=== PATIENT | male | born 1940 | race Caucasian/White ===

== ENCOUNTER 2017-05-21 10:00 | Inpatient (IN) | payer MEDICARE, OTHER ==
[~2017-05-21] VITALS: Ht 175.3 cm; Wt 78.1 kg
--- NOTE | ~2017-05-21 | CON ---
PATIENT'S NAME: REGINALDO RUSH [facility] AGE: 76 Y [address] ROOM: [place] [address] LOCATION: [facility] ADMIT DATE: 05/21/2017 Consultation DISCHARGE DATE: FAMILY PHYSICIAN: PHYSICIAN, UNKNOWN ATTENDING PHYSICIAN: Rajinder Godoy REFERRING PHYSICIAN: STEPHAN SANTIZO MD REASON FOR CONSULTATION: Abdominal pain. HISTORY OF PRESENT ILLNESS: The patient is a 76-year-old male who, 3 or 4 days ago, said that he was raking apples. A few hours after this, he had some right-sided pain. Describes it as quite sharp, worse with deep breath. This has gotten worse over a 24-hour period. This was felt to be mainly in the right flank on his initial examination. He noticed pain when he would bend or turn. He was evaluated and was found to have elevated creatinine. He carries a history of kidney stones. He has had an ultrasound of his kidneys that revealed a cyst. Otherwise, no stones. He had a CT scan of his abdomen due to his abdominal pain, but also pain with breathing, and was found to have a small pulmonary embolus. No significant intraabdominal abnormalities, but because of ongoing abdominal pain and leukocytosis, I was asked to see the patient. Currently, he says his pain has stabilized. This has not gotten significantly worse, but is not significantly better either. He is being maintained on heparin. The patient states he has never had pain like this in the past. He describes the pain as right sided as well as right upper quadrant, hurts most with breathing. His white blood cell count was 21,000. Lactate of 1.4. He has no known history of coronary artery disease. HOME MEDICATIONS: Include: 1. Acetaminophen. 2. Cholecalciferol. 3. Multivitamin. 4. Aspirin. 5. Hydrochlorothiazide. 6. Citalopram. 7. Zolpidem. 8. Mevacor. 9. Lisinopril. 10. Verapamil. CURRENT ILLNESSES: Hypertension, hyperlipidemia, and degenerative joint disease. PAST SURGICAL HISTORY: PATIENT'S NAME: REGINALDO RUSH [facility] AGE: 76 Y [address] ROOM: [place] [address] LOCATION: [facility]ICU ADMIT DATE: 05/21/2017 Consultation DISCHARGE DATE: FAMILY PHYSICIAN: PHYSICIAN, UNKNOWN ATTENDING PHYSICIAN: Rajinder Godoy Appendectomy and left ureteral stone removal. SOCIAL HISTORY: He does not use tobacco. Occasionally uses alcohol. 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 ALLERGIES: NONE. FAMILY HISTORY: Noncontributory. REVIEW OF SYSTEMS: Denies fevers, chills, or night sweats. No chest pain. He currently is short of breath with the pain. No melena or hematochezia. No hematuria or dysuria. No history of hyper or hypothyroidism. No diabetes. Further review of systems is all negative. PHYSICAL EXAMINATION: GENERAL: A pleasant 76-year-old male who appears mildly uncomfortable. HEENT: Head is normocephalic and atraumatic. Eyes are anicteric. NECK: Without lymphadenopathy. HEART: Sinus rhythm. LUNGS: Relatively clear bilaterally. ABDOMEN: Does reveal tenderness, mainly in the right upper quadrant. No rebound or guarding is present. The rest of the abdominal exam is benign, although with pressure throughout the abdomen, there is mild radiation into the right upper quadrant and right flank. No palpable masses are present. He has a right paramedian incision from previous appendectomy. EXTREMITIES: Warm. No edema. ASSESSMENT: Abdominal pain. PLAN: At this point in time, I would like to get an ultrasound of Reginaldo's gallbladder as his pain mainly seems in the right upper quadrant, although he has normal liver function tests and had a normal CT scan. His pain seems to be out of proportion compared to his imaging findings which initially may be concerning for ischemia; however, his lactate is 1.4, and his white blood cell count has come down from 27,000 to 21,000. He really does not have a large number of risk factors to develop acalculous cholecystitis. If his ultrasound is negative and his pain persists, we may either need to do repeat CT versus HIDA scan. PATIENT'S NAME: REGINALDO RUSH [facility] AGE: 76 Y [address] ROOM: [place] [address] LOCATION: [facility] ADMIT DATE: 05/21/2017 Consultation DISCHARGE DATE: FAMILY PHYSICIAN: PHYSICIAN, UNKNOWN ATTENDING PHYSICIAN: Rajinder Godoy UCHE J MD RANJIT RIOS/aaron /[id number] d: 05/23/17 1324 t: 06/03/17 1331, CONSULTATION REPORT
--- NOTE | ~2017-05-21 | PN ---
PATIENT'S NAME: GERALDO RUSH [facility] AGE: 76 Y [address] ROOM: [address] [place] [address] LOCATION: GPCU ADMIT DATE: 05/21/2017 Progress Notes DISCHARGE DATE: FAMILY PHYSICIAN: PHYSICIAN, UNKNOWN ATTENDING PHYSICIAN: Rajinder Godoy DATE OF SERVICE: 05/25/2017 CLINICAL UPDATE: Geraldo was admitted to the hospital as you can see several days ago with a right lung pulmonary embolus. He ended up having a fair amount of narcotics and was sedated enough, confused enough, he ended up in the intensive care unit a couple of days ago and responded to Narcan. His other problem has been an acute kidney injury, followed here by Dr. Ferrari. He has improved in all areas. Although he is a little bit confused, his cognition is intact. He knows me as the interviewer, knows his family. When I see him, he has been out in the hallway. He has acute kidney injury, his creatinine is creeping downward back down under 3. See Dr. Ferrari's note. Lastly, his treatment for his pulmonary embolus will be moved to oral therapy per Dr. Godoy. His working diagnosis and treatment plan described above will be to get him out of here tomorrow if he is stable back to his home environment in [place], [place]. When I see him today, he is alert. Vital signs are stable. When I see him in the hallway, he is not complaining of right-sided chest pain, shortness of breath, or right-sided abdominal pain. He says he is voiding "normally." MD HAVEN MOSQUEDA/modl /[id number] d: 05/25/17 2314 t: 06/16/17 0759, PROGRESS NOTES
--- NOTE | ~2017-05-21 | HP ---
PATIENT'S NAME: GERALDO RUSH [facility] AGE: 76 Y [address] ROOM: [place] [address] LOCATION: GPCU ADMIT DATE: 05/21/2017 History & Physical DISCHARGE DATE: FAMILY PHYSICIAN: PHYSICIAN, UNKNOWN ATTENDING PHYSICIAN: Rajinder Godoy DATE OF SERVICE: HISTORY OF PRESENTING ILLNESS: This is a 76-year-old gentleman with history of hyperlipidemia, hypertension, recent depression secondary to loss of his spouse, who apparently presented to the emergency department in [facility] after complaining of right flank and chest pain which is pleuritic in nature. The patient presented to the emergency department with severe pain and hypoxia secondary to the history of pleurisy. The patient was given some pain medication and his pain resolved, but he continued to complain of pain. A D-dimer was elevated and subsequently I was contacted to transfer the patient for higher level of care. The patient also presented with acute kidney injury with increased creatinine. Subsequently, the patient was transferred to [facility] for higher level of care. Upon evaluation, the patient still complains of pain in the right upper abdomen and the right lower chest, which is pleuritic in nature. He was a little nauseated. He denied any chest pain, pleurisy, hemoptysis, nausea, vomiting, abdominal pain. He also denied any recent trauma to his chest. He denied any recent prolonged travel. He denies any recent surgery. ALLERGIES: NO KNOWN DRUG ALLERGIES. MEDICATIONS: His medications are being reconciliated. PAST MEDICAL HISTORY: Hypertension, hyperlipidemia, depression. PAST SURGICAL HISTORY: 1. Appendectomy, tonsillectomy, prostate biopsy. 2. Kidney stones. 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 He is since last year. He denied alcohol or tobacco abuse. FAMILY HISTORY: PATIENT'S NAME: GERALDO RUSH [facility] AGE: 76 Y [address] ROOM: [place] [address] LOCATION: GPCU ADMIT DATE: 05/21/2017 History & Physical DISCHARGE DATE: FAMILY PHYSICIAN: PHYSICIAN, UNKNOWN ATTENDING PHYSICIAN: Rajinder Godoy The patient denies any family history of lung cancer. REVIEW OF SYSTEMS: A 10-point review of system was done, and otherwise, negative other than mentioned in history of presenting illness. PHYSICAL EXAMINATION: GENERAL: The patient is lying in bed, comfortable, does not appear in acute distress. VITAL SIGNS: His vital signs include SpO2 of 94%, temperature is 98, pulse is 77, respiratory rate 20, blood pressure 112/58. HEENT: Eyes are nonicteric. Pupils equal, reactive to light and accommodation. Normocephalic, atraumatic. Mallampati score is 2. NECK: Supple. No lymphadenopathy. No jugular venous distention. LUNGS: Good bilateral air entry. There are crackles in the right lung base. HEART: S1, S2. No murmurs, rubs, or gallops appreciated. ABDOMEN: Soft, nontender. No palpable organs. EXTREMITIES: Lower extremities; no edema, clubbing, or cyanosis. LABORATORY DATA: There is a white cell count of 20, hemoglobin of 12.9, hematocrit of 37.5, platelets of 153. His sodium is 136, his potassium was 4.7, chloride of 105, CO2 of 23, BUN of 30, creatinine 2.0, glucose is 130. Albumin is 3.2. Pro time is 10.7. INR is 1.2. His neutrophils 16.1. His anion gap is 12.7. Total bilirubin is 0.7, ALT is 30, AST 22. CT scan of his abdomen was done which revealed patchy infiltrate and atelectasis in the right lung base, vascular calcification, right parapelvic cyst, small sliding hiatal hernia, no free air with no findings of bowel obstruction. V/Q scan of his chest was done, which revealed high probability pulmonary embolism. IMPRESSION: 1. Pulmonary embolism. At the current point, we will continue full anticoagulation. 2. We will obtain a 2D echocardiogram. 3. We will obtain cardiac enzymes. 4. We will obtain a BNP. 5. We will get pain control. 6. We will consult Medicine for medical management. 7. We will follow up for the acute kidney injury. We will start the patient on saline 75 mL. 8. We will also obtain amylase and lipase. PATIENT'S NAME: GERALDO RUSH [facility] AGE: 76 Y [address] ROOM: [place] [address] LOCATION: GPCU ADMIT DATE: 05/21/2017 History & Physical DISCHARGE DATE: FAMILY PHYSICIAN: PHYSICIAN, UNKNOWN ATTENDING PHYSICIAN: Rajinder Godoy 9. We will follow up with you. Thank you for allowing me to participate in the care of this patient. MD LIZ SPANGLER/aaron /[id number] D: [id number] T: [id number] HISTORY & PHYSICAL
--- NOTE | ~2017-05-21 | HP ---
PATIENT'S NAME: GERALDO RUSH [facility] AGE: 76 Y [address] ROOM: [place] [address] LOCATION: [facility] ADMIT DATE: 05/21/2017 History & Physical DISCHARGE DATE: FAMILY PHYSICIAN: PHYSICIAN, UNKNOWN ATTENDING PHYSICIAN: Rajinder Godoy DATE OF SERVICE: CHIEF COMPLAINT: Right-sided chest pain. HISTORY OF PRESENT ILLNESS: The patient is a pleasant 76-year-old , who sees Dr. Romulo Rosas, family doctor around [place]. The patient had been evaluated in [place] prior to being transferred to [facility]. At [place], he was found to have right-sided chest pain, slight elevation of his BUN and creatinine, was transferred to the care of Dr. Godoy, site foreman. I was consulted to follow him along medically. The patient's V/Q scan does show high probability of a right-sided pulmonary embolus. His creatinine on admission over in [place] to the ER was 1.8. His creatinine here was 2.0. There on admission in [place], he did have a chest x-ray that suggested an infiltrate in the right lung. A CT of the abdomen and pelvis did not show any pathology. He was treated with IV antibiotics. His baseline creatinine this past September was 1.5. If his renal function continues to deteriorate, of course we will consult Dr. Ferrari, knitting machine fixer head, I will follow along daily. When I see him, he is resting quietly in bed. When he takes a deep breath, he complains of severe right-sided chest pain. The patient has had no symptoms of dysphagia, no rash on his chest consistent with shingles, had never had a previous pulmonary embolus, and has not had swelling in his legs recently. Historically, he had presented to the [facility], is a 76-year-old male with pleuritic type chest pain that began a day and a half prior to being seen in the ER after picking up some apples. CURRENT MEDICATIONS: See nurse's notes. ALLERGIES: PATIENT'S NAME: GERALDO RUSH [facility] AGE: 76 Y [address] ROOM: [place] [address] LOCATION: [facility] ADMIT DATE: 05/21/2017 History & Physical DISCHARGE DATE: FAMILY PHYSICIAN: PHYSICIAN, UNKNOWN ATTENDING PHYSICIAN: Rajinder Godoy SEE NURSE'S NOTES. SOCIAL HISTORY: He does not smoke. FAMILY HISTORY: Noncontributory. PREVIOUS OPERATIONS: Status post appendectomy and a history of left renal stone removed in the past. REVIEW OF SYSTEMS: Positive for hypertension, hyperlipidemia, sleep disorder, depressive illness, degenerative joint disease, and current illness. PHYSICAL EXAMINATION: GENERAL: Pleasant, bald male, oriented to person, place, and time. Sitting in bed with O2 per nasal cannula. HEENT: Shows pupils react to light. TMs not visualized. Posterior pharynx is clear. NECK: Unremarkable. No thyroid enlargement. LUNGS: Show decreased breath sounds. Right chest with rales. Right chest, I do not hear a rub. CARDIAC: Heart sounds are distant. Regular rhythm noted. No rub over the heart. ABDOMEN: Benign without point tenderness. PELVIC/RECTAL: Not done. EXTREMITIES: Unremarkable. No edema. NEUROLOGIC: Grossly intact. ASSESSMENT: 1. Severe right-sided chest pain, pleuritic, most likely secondary to pulmonary embolus, right chest. 2. Acute kidney injury, etiology undetermined. 3. Hypertension, essential. 4. Hyperlipidemia. 5. Sleep disorder. 6. Depressive illness. 7. Degenerative joint disease. PLAN: As above. PATIENT'S NAME: GERALDO RUSH [facility] AGE: 76 Y [address] ROOM: [place] [address] LOCATION: [facility] ADMIT DATE: 05/21/2017 History & Physical DISCHARGE DATE: FAMILY PHYSICIAN: PHYSICIAN, UNKNOWN ATTENDING PHYSICIAN: Rajinder Godoy MD HAVEN MOSQUEDA/aaron /[id number] D: [id number] T: [id number] HISTORY & PHYSICAL
--- NOTE | ~2017-05-21 | CON ---
PATIENT'S NAME: GERALDO RUSH [facility] AGE: 76 Y [address] ROOM: [place] [address] LOCATION: GPCU ADMIT DATE: 05/21/2017 Consultation DISCHARGE DATE: FAMILY PHYSICIAN: PHYSICIAN, UNKNOWN ATTENDING PHYSICIAN: Rajinder Godoy DATE OF CONSULTATION: 05/22/2017 REFERRING PHYSICIAN: STEPHAN FARMER MD REQUESTING PHYSICIAN: Rajinder Godoy MD. FAMILY PHYSICIAN: Stephan Farmer MD REASON FOR CONSULTATION: Elevated BUN and creatinine. HISTORY OF PRESENT ILLNESS: The patient is a 76-year-old white male with history of hypertension and hyperlipidemia. His outpatient medication does include lisinopril. He is also taking some nonsteroidals on a regular basis because of left knee pain and bilateral ankle pain. The patient reports that over the last 3 days, he has not been eating and drinking well. He gradually developed significant right flank pain. Interestingly, this pain is worse with breathing and therefore he had shallow breathing. The patient got admitted to the emergency room. Chest x-ray did show there is some infiltrate in the right lung. CT scan of the abdomen and pelvis does not show any acute pathology. The patient is being treated with IV ceftriaxone and azithromycin. He reports that sometimes his pain is up to 10/10. The patient does have elevated white count. His urinalysis shows trace protein. He does have some rbc's and wbc's in the urine with bacteria, but he had a difficult Alas insertion at the local hospital. His baseline creatinine from 2010 was 1.5. He was admitted to the hospital at that time with left-sided hydronephrosis which was from a 5 mm kidney stone. The stone was removed. May 21, that is the day of admission, creatinine was 2.0 and today is 2.3. The patient did appear dehydrated. REVIEW OF SYSTEMS: GENERAL: He denies any fever or chills. He is tired. HEENT: Denies any sore throat or sinus congestion. CARDIOVASCULAR: He does not have any chest pain. RESPIRATORY: He is having shallow breathing because his right flank pain gets worse with breathing. GI: He denies any abdominal pain, but he has pain right over the iliac crest PATIENT'S NAME: GERALDO RUSH [facility] AGE: 76 Y [address] ROOM: [address] [address] LOCATION: GPCU ADMIT DATE: 05/21/2017 Consultation DISCHARGE DATE: FAMILY PHYSICIAN: PHYSICIAN, UNKNOWN ATTENDING PHYSICIAN: Rajinder Godoy and above the groin area on the right side. He has poor appetite. : Denies any dysuria or frequency. He has a Alas catheter. MUSCULOSKELETAL: He has pain in both ankles and left knee. SKIN: Denies rash or pruritus. Denies allergies or hay fever. LYMPHATICS: Denies any lymph node enlargement or easy bruising. Denies any heat or cold intolerance. PSYCHIATRIC: Denies any sadness, crying spells, poor concentration, or panic attack. ALLERGIES: NO KNOWN DRUG ALLERGIES. MEDICATIONS: 1. Acetaminophen 500 mg a day. 2. Cholecalciferol 1000 international unit every day. 3. Multivitamin once a day. 4. Aspirin 81 mg a day. 5. Hydrochlorothiazide 25 mg a day. 6. Citalopram 20 mg a day. 7. Zolpidem 5 mg a day. 8. Mevacor 20 mg q.h.s. 9. Lisinopril 20 mg a day. 10. Verapamil HCl 240 mg every day. PAST MEDICAL HISTORY: Hypertension, hyperlipidemia, sleep disorder, depressive illness, degenerative joint disease. PAST SURGICAL HISTORY: Appendectomy, left ureteral stone removal. SOCIAL HISTORY: The patient lives in [place]. 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 No history of tobacco, occasionally uses alcohol. FAMILY HISTORY: No family history of kidney disease or dialysis. PHYSICAL EXAMINATION: GENERAL APPEARANCE: A 76-year-old, white male, sitting on the hospital bed, visibly uncomfortable with the pain. VITAL SIGNS: Temperature 97.8, pulse 89, systolic blood pressure 99 and diastolic 57, respiratory rate of 20. HEAD: Normocephalic. HEENT: Pupils are round, equal, normal eyelid and conjunctivae. Oral cavity PATIENT'S NAME: GERALDO RUSH [facility] AGE: 76 Y [address] ROOM: [address] [address] LOCATION: GPCU ADMIT DATE: 05/21/2017 Consultation DISCHARGE DATE: FAMILY PHYSICIAN: PHYSICIAN, UNKNOWN ATTENDING PHYSICIAN: Jayne,Rajinder S clear. Dry mucosa. Trachea central. No thyromegaly. No bruit. Flat jugular veins. HEART: Sounds are audible in all the areas without any gallop, rub, or murmur. LUNGS: Decreased breath sound on the right side with poor air movement on the right side. ABDOMEN: Has some rigidity and muscle guard on the right side of the abdomen as well. He does not have any rebound tenderness. He does have bowel sounds. EXTREMITIES: No clubbing or cyanosis. SKIN: No sign of vasculitis or palpable induration. NEUROLOGICAL: He is alert and grossly nonfocal. HIGHER PSYCHIATRIC FUNCTION: He has good speech and memory. LABORATORY DATA: Blood work shows glucose of 130, BUN 37, creatinine 2.3. Sodium 136, potassium 5.1, chloride 106, bicarb 23, calcium 8.4, albumin 3.0, phosphorus of 3.9. ASSESSMENT: 1. Acute kidney injury. It is not clear whether this is acute on chronic kidney injury versus acute kidney injury from prerenal etiology. The patient has not been eating and drinking well for the last 3 days. He has been on lisinopril and he took ibuprofen. 2. Right flank pain. His flank pain is right above the iliac crest area. I doubt that this is from renal infarct, although he has a few red cells in the urine. CT scan was unremarkable. The patient reports that the pain changes with breathing and I think it is pleuritic pain, but I am not sure why it is referred to below the diaphragm. Alternatively, he could be having diverticulitis. 3. Hypertension. 4. Hyperlipidemia. 5. Degenerative joint disease. PLAN: I agree with IV volume resuscitation. I had a discussion with Dr. Godoy about his pain. The patient is already on ceftriaxone and azithromycin and we can add Flagyl. We will check LDH and AST and renal enzymes. The patient does have some bacteria in the urine. I do not think that he has pyelonephritis but urine culture is pending at this time. Obviously, agree with discontinuing lisinopril and nonsteroidals. Follow his kidney function very closely. I would like to thank Dr. Godoy for allowing me to participate in this patient's care. PATIENT'S NAME: GERALDO RUSH [facility] AGE: 76 Y [address] ROOM: [place] [address] [facility] ADMIT DATE: 05/21/2017 Consultation DISCHARGE DATE: FAMILY PHYSICIAN: PHYSICIAN, UNKNOWN ATTENDING PHYSICIAN: Rajinder Godoy M TRACEY ARROYO MD MII/modl /[id number] CC: Stephan Farmer MD d: 05/22/17 1755 t: 05/25/17 1106, CONSULTATION REPORT
--- NOTE | ~2017-05-21 | ECHO ---
Transthoracic Echocardiography Report (TTE) Demographics Patient Name GERALDO RUSH Date of Study 05/22/2017 Patient Number [id number] Visit Number [id number] Date of 1940 Room Number G6201 Gender Male Number Age 76 year(s) Referring Jayne Barker [employer] Aide Radha Sebastian RDCS, RVT, Physician RDMS, MACHINE CASTINGS PLASTERER Physician Interpreting Brandyn Ramirez MD Manager Branch Physician Supervising Ordering Jayne Barker MD, MD/MLP Physician Nurse Stress Cafeteria Assistant Conclusions Contractility Score Summary Normal Left Ventricular contractility was noted. Summary Technically difficult exam. The estimated left ventricular ejection fraction is 70-75%. Hyperdynamic left ventricular systolic function. Normal wall thickness and chamber size. Diastolic assessment reveals normal relaxation, Grade I diastolic dysfunction. Mildly dilated right ventricle with normal to hyperdynamic systolic function. Focal calcification of the right coronary cusp. The aortic valve is severely sclerotic. Mild-moderate tricuspid regurgitation by color Doppler. There is severe pulmonary hypertension. The pulmonary pressure (RVSP) is 83 mmHg. Trivial posterior pericardial effusion. There is no echocardiographic evidence of cardiac tamponade. Procedure Type of Study TTE procedure:2D Echocardiogram, M-Mode, Doppler , Color Doppler. Procedure Date Date: 05/22/2017 Start: 01:28 PM Study Location: Inpatient Portable Technical Quality: Fair due to crying patient. Additional Indications:Poor renal function, Pulmonary Emboli, Chest / Abdominal pain. Appropriate Use Criteria: 9 Patient Status: STAT HR: 97 bpm BP: 122/60 mmHg M-Mode/2D Measurements LV Diastolic Dimension: 5.12 cm LV Systolic Dimension: 2.51 cm LV Septum Diastolic: 1.03 cm LV PW Diastolic: 0.92 cm AO Root Dimension: 2.5 cm RV Diastolic Dimension: 3.48 cm LA volume: 58 ml LVOT: 2.1 cm RV Base: 4.2 cm RV Mid: 3.9 cm RV Length: 5.8 cm TAPSE: 2 cm TDI-S': 18 cm/s Doppler Measurements AV Peak Velocity: 2.22 m/s MV Peak E-Wave: 0.76 m/s AV Peak Gradient: 19.71 mmHg MV Peak A-Wave: 0.86 m/s LVOT Peak Velocity: 1.09 m/s MV E/A Ratio: 0.87 MV P1/2t: 74 msec TR Velocity:4.33 m/s TR Gradient:75 mmHg Estimated RVSP: 83 mmHg PV Peak Velocity: 1.32 m/s E' Septal Velocity: 0.07 m/s PV Peak Gradient: 6.97 mmHg E' Lateral Velocity: 0.11 m/s Estimated PASP: 83 mmHg A' Septal Velocity: 0.1 m/s A' Lateral Velocity: 0.14 m/s Findings Left Ventricle Hyperdynamic left ventricular systolic function. Normal wall thickness and chamber size. Diastolic assessment reveals Grade I diastolic dysfunction. Right Ventricle Mildly dilated right ventricle with normal to hyperdynamic systolic function. Left Atrium Borderline left atrial enlargement. Right Atrium Normal right atrial size. Mitral Valve Mild to moderate mitral annular calcification. Mild calcification of the mitral valve. Trivial mitral regurgitation by color Doppler. Aortic Valve Focal calcification of the right coronary cusp. The aortic valve is severely sclerotic. Tricuspid Valve Moderate tricuspid regurgitation by color Doppler. There is severe pulmonary hypertension. The pulmonary pressure (RVSP) is 83 mmHg. Pulmonic Valve Mild-moderate pulmonic valve regurgitation by color Doppler. Pericardial Effusion No evidence of pericardial effusion. Miscellaneous Suboptimal subcostal window to evaluate the IVC and interatrial septum. Pleural Effusion No evidence of pleural effusion. Signature dtt: James Ahumada (cardio) dtd: 05/22/17 [id number] Physician Self Edit
--- NOTE | 2017-05-21 11:03 | NUR ---
Pt is 76 y/o male admit for PE/acute kidney injury for . PT alert and oriented x3. Resides at home by himself. Hx hypercholest,htn,seasonal allergies,renal calculi,polyps,urgency/frequency,nocturia,depression. Pt states he was raking apples on Wednesday and developed a pain in right rib area. Over the past 2 days he has become increasingly SOB with and without activity and his pain kept getting worse. He was up all night. WEnt to [place] [facility]. Elevated d-dimer.
[2017-05-21] MEDS ORDERED: TYLENOL EXTRA500 MG PO (11:30)
[2017-05-21] MEDS ORDERED: VITAMIN D1000 UNIT PO (11:31)
[2017-05-21] MEDS ORDERED: THERAGRAN-M1 TAB PO (11:32)
[2017-05-21] MEDS ORDERED: ASPIRIN LO-DOSE81 MG PO (11:32)
[2017-05-21] MEDS ORDERED: CELEXA20 MG PO (11:33)
[2017-05-21] MEDS ORDERED: HYDRODIURIL25 MG PO (11:33)
[2017-05-21] MEDS ORDERED: AMBIEN5 MG PO (11:34)
[2017-05-21] MEDS ORDERED: MEVACOR20 MG PO (11:36)
[2017-05-21] MEDS ORDERED: LISINOPRIL20 MG PO (11:36)
[2017-05-21] MEDS ORDERED: VERAPAMIL ER240 MG PO (11:38)
[2017-05-21 11:43] LABS: BASOPHIL % 0.2 %; HEMATOCRIT 37.5 % (37.0-53.0); HEMOGLOBIN 12.9 g/dL (11.0-16.0); IMMATURE GRANULOCYTE # 0.1 K/uL (0.0-0.3); IMMATURE GRANULOCYTE % 0.7 %; LYMPHOCYTE # 2.1 K/uL (0.8-4.0); LYMPHOCYTE % 10.2 %; MCH 33.2 pg (27.0-34.0); MCHC 34.4 gm/dL (32.0-36.5); MCV 96.6 fl (83.0-98.0); MONOCYTE # 1.8 K/uL (0.0-1.0); MPV 9.6 fl (9.4-12.4); NEUTROPHIL # (ANC) 16.1 K/uL (1.4-9.0); NEUTROPHIL % 79.9 %; NRBC % 0 /100WBC (0-0.00); PLATELET COUNT 153 K/uL (150-450); RBC 3.88 M/uL (3.50-5.50); RDW-CV 12.3 % (11.9-14.6)
[2017-05-21 11:46] LABS: WBC 20.1 K/uL (4.0-11.0)
[2017-05-21 11:50] LABS: INR - (THERAPEUTIC) 1.02 (0.92-1.07); PROTIME 10.7 SECONDS (9.8-11.4)
[2017-05-21 12:01] LABS: ALBUMIN 3.2 gm/dL (3.5-5.0); ANION GAP 12.7 (10.0-19.0); CALCIUM 8.8 mg/dL (8.5-10.5); POTASSIUM 4.7 mMol/L (3.7-5.1); TOTAL BILIRUBIN 0.7 mg/dL (0.0-1.5)
--- NOTE | 2017-05-21 19:29 | NUR ---
Significant Event:Patient had a VQ scan and CT of abd. The VQ scan was +. Heparin gtt will be continued, is at 1000 units/hr. Was started on antibiotics. Need urine for culture. Patient initially didn't have much pain, but this afternoon patient did started to have pain- right flank radiating to right abd, and it worse with inspiration. Has had MS several times for the pain. Is getting better. Has been NPO throughout day, but can now have regular diet. Dr. Farmer consult for medical management. Follow up:Pain control, Heparing therpuetic
--- NOTE | 2017-05-22 04:38 | NUR ---
Significant Event:A/Ox3. Afebrile. O2 2-4L/NC to maintain sats >90%. Patient c/o pain to his R)flank that radiates to his lower abdomen. 2mg IVP Morphine given with last dose at 0235, also received orders for [place] 10/325 1-2 tabs q4h prn pain. With pain at a 9/10 with little relief from morphine alone patient received 2 tabs and was able to sleep for 3-4 hours. Patient very drowsy and hard to keep attention span after pain medications. After this I will gave 1 tab norco and 2mg Morphine 30 minutes apart and pain seems to be well controlled and patient resting. Daughter at the bedside. Patient able to void 200ml right at shift change and only had urges throughout the night. Bladder scan at 0130 showed 212ml. Heparin gtt continues at 1100 with next ptthp at 0730. Follow up:Continue to monitor UOP and flank pain. Patient wants to be a DNR
[2017-05-22 04:51] LABS: ANION GAP 12.1 (10.0-19.0); CALCIUM 8.4 mg/dL (8.5-10.5); CREATININE 2.3 mg/dL (0.6-1.3); PHOSPHORUS 3.9 mg/dL (2.5-4.9); POTASSIUM 5.1 mMol/L (3.7-5.1)
[2017-05-22 07:24] LABS: BILIRUBIN URINE NEGATIVE (NEGATIVE); BLOOD URINE 50 /UL (NEGATIVE); COLOR URINE YELLOW (YELLOW); GLUCOSE URINE NEGATIVE (NEGATIVE); KETONE URINE NEGATIVE (NEGATIVE); LEUKOCYTES URINE NEGATIVE /UL (NEGATIVE); NITRITE URINE NEGATIVE (NEGATIVE); PROTEIN URINE 15 mg/dL (NEGATIVE); TURBIDITY URINE 1+ (CLEAR); UROBILINOGEN URINE NORMAL (NORMAL)
[2017-05-22 07:43] LABS: AMORPHOUS URINE 1+ (NEGATIVE); BACTERIA URINE MODERATE (NEGATIVE); EPITHELIAL URINE 0-2 #/HPF (NEGATIVE); MUCUS URINE 2+ (NEGATIVE)
[2017-05-22 11:55] LABS: BASOPHIL % 0.2 %; HEMOGLOBIN 13.3 g/dL (11.0-16.0); IMMATURE GRANULOCYTE # 0.2 K/uL (0.0-0.3); IMMATURE GRANULOCYTE % 0.6 %; LYMPHOCYTE # 1.5 K/uL (0.8-4.0); LYMPHOCYTE % 6.2 %; MCH 33.2 pg (27.0-34.0); MCHC 33.3 gm/dL (32.0-36.5); MCV 99.8 fl (83.0-98.0); MONOCYTE # 2.4 K/uL (0.0-1.0); MONOCYTE % 9.9 %; MPV 9.7 fl (9.4-12.4); NEUTROPHIL # (ANC) 19.6 K/uL (1.4-9.0); NEUTROPHIL % 83.1 %; NRBC % 0 /100WBC (0-0.00); PLATELET COUNT 170 K/uL (150-450); RBC 4.01 M/uL (3.50-5.50); RDW-CV 12.3 % (11.9-14.6)
[2017-05-22 11:56] LABS: WBC 23.6 K/uL (4.0-11.0)
--- NOTE | 2017-05-22 16:47 | NUR ---
Significant Event: C/O SEVERE PAIN TO RIGHT ABDOMEN WITH BREATHING. NORCO 10/325 MG GIVEN X2, MORPHINE 2 MG X2 AND 3 MG X1, ULTRAM 100 MG X1, RESTING NOW. MOANING AND GROANING IN PAIN FOR MOST OF AM AND EARLY AFTERNOON. RENAL U/S DONE. 2D ECHO DONE. CHEST X-RAY DONE. COX CATHETER PLACED, 350 ML UOP FOR SHIFT, MINIMAL AMOUNT OF UOP SINCE COX PLACED @ 1145, DR ARROYO AND DR. FIORE AWARE. Follow up:
[2017-05-22 18:03] LABS: PCO2 56 mmHg (35-45); PO2 99 mmHg (80-90)
[2017-05-22 18:05] LABS: HEMATOCRIT 41.8 % (37.0-53.0); HEMOGLOBIN 13.6 g/dL (11.0-16.0); MCH 33.4 pg (27.0-34.0); MCHC 32.5 gm/dL (32.0-36.5); MCV 102.7 fl (83.0-98.0); MPV 9.7 fl (9.4-12.4); PLATELET COUNT 197 K/uL (150-450); RBC 4.07 M/uL (3.50-5.50); RDW-CV 12.4 % (11.9-14.6); WBC 27.7 K/uL (4.0-11.0)
[2017-05-22 18:21] LABS: ALBUMIN 3.1 gm/dL (3.5-5.0); ANION GAP 15.3 (10.0-19.0); CALCIUM 8.8 mg/dL (8.5-10.5); POTASSIUM 5.3 mMol/L (3.7-5.1); TOTAL PROTEIN 7.7 g/dL (6.0-8.4)
[2017-05-22 18:25] LABS: TOTAL BILIRUBIN 0.3 mg/dL (0.0-1.5)
[2017-05-22 18:34] LABS: ABSOLUTE NEUTROPHIL CT (ANC) 23.6 K/uL (1.4-9.0); BANDED NEUTROPHIL # 0.8 K/uL (0.0-0.1); BANDED NEUTROPHILS % 3 %; LYMPHOCYTE # 1.7 K/uL (0.8-4.0); LYMPHOCYTE % 6 %; MONOCYTE # 2.5 K/uL (0.0-1.0); SEGMENTED NEUTROPHIL # 22.7 K/uL (1.4-9.0); SEGMENTED NEUTROPHIL % 82 %
--- NOTE | 2017-05-22 19:10 | NUR ---
Significant Event: AT AROUND 1715, RN CALLED RT TO LOOK AT PATIENT'S BREATHING PATTERN. PT WAS SLEEPING, RR 20-24. O2 @ 6L NC WITH SATS 85-92%. ETCO2 MONITOR APPLIED WITH READINGS 30'S-50'S. ATTEMPTED TO WAKE PATIENT BUT WAS UNRESPONSIVE. DUSKY COLORED SKIN. DIAPHORETIC. APPLIED NON-REBREATHER @ [address] SANTIZO CALLED HOWEVER UNABLE TO COME SEE PATIENT. DR. FIORE CALLED AND STATED HE WOULD COME IN. NARCAN 0.4 MG IV GIVEN X1 @ 1735. PATIENT STARTED TO RESPONSED ABOUT 10 MINUTES LATER. O2 WEANED DOWN TO 6L NC. ONCE PATIENT AROUSABLE HE C/O SEVERE PAIN EVERYWHERE. VSS ON THE 6L NC. 500 ML NS BOLUS INFUSED. TRANSFERRED TO ICU @ 1850. REPORT GIVEN TO PRIMARY RN TAKING PATIENT. Follow up:
[2017-05-22 19:30] LABS: PCO2 50 mmHg (35-45)
[2017-05-22 19:31] LABS: PO2 64 mmHg (80-90)
[2017-05-23 05:10] LABS: ALBUMIN 2.4 gm/dL (3.5-5.0); ANION GAP 14.3 (10.0-19.0); CALCIUM 7.8 mg/dL (8.5-10.5); CREATININE 3.8 mg/dL (0.6-1.3); PHOSPHORUS 4.6 mg/dL (2.5-4.9); POTASSIUM 5.3 mMol/L (3.7-5.1)
[2017-05-23 05:25] LABS: BASOPHIL % 0.1 %; HEMATOCRIT 34.5 % (37.0-53.0); HEMOGLOBIN 11.4 g/dL (11.0-16.0); IMMATURE GRANULOCYTE # 0.2 K/uL (0.0-0.3); IMMATURE GRANULOCYTE % 0.8 %; LYMPHOCYTE # 1.8 K/uL (0.8-4.0); LYMPHOCYTE % 8.5 %; MCH 33.6 pg (27.0-34.0); MCV 101.8 fl (83.0-98.0); MONOCYTE # 1.9 K/uL (0.0-1.0); MONOCYTE % 8.8 %; MPV 10.3 fl (9.4-12.4); NEUTROPHIL # (ANC) 17.5 K/uL (1.4-9.0); NEUTROPHIL % 81.8 %; NRBC % 0 /100WBC (0-0.00); PLATELET COUNT 148 K/uL (150-450); RBC 3.39 M/uL (3.50-5.50); RDW-CV 12.5 % (11.9-14.6); WBC 21.5 K/uL (4.0-11.0)
--- NOTE | 2017-05-23 05:47 | NUR ---
patient is sleepy but easily awake will follow simple commands moves all extremities,clear upper lungs sound diminished on the bases,bi-pap all night with a good results,switched back to nc 6l/min at 0530 am per patient request,rr=17,c4syl=16%,abd is soft but patient complain of pain to rt lower abd,u.o.p is 5 to 10ml/h very consintrated,iv heparin drip at 1000units/h per protocol. FOLLOW UP:continue to monitor patient's hemodynamic and respiratory status closely
--- NOTE | 2017-05-23 12:03 | NUR ---
Significant Event: TOOK OVER PT CARES FROM [id number]. PT IS ALERT AND ORIENTED X3. NEURO INTACT. ORDER TO KEEP MAPS GREATER THAN 60. O2 WEANED DOWN TO 3 LITERS PER NASAL CANNULA. TACHYPNEIC AT TIMES RELATED TO PAIN. WEARS BIPAP AT NIGHT. PT COUGHED UP A SMALL AMOUNT OF THICK, BLOOD-TINGED SPUTUM THIS MORNING. COX PATENT, DRAINING CARMELITA COLORED URINE. LOW URINE OUTPUT THIS MORNING; IS AWARE OF THIS AND DOES NOT NEED TO BE CALLED REGARDING LOW URINE OUTPUT. IV'S TO R)AC AND L)AC INTACT. HEPARIN DRIP INFUSING AT 1000 UNITS/HR. PTT-HP THIS MORNING WAS 58; NO CHANGES PER PROTOCOL. NEXT PTT-HP ORDERED FOR 2345 TONIGHT. IV FLUIDS CHANGED PER 'S ORDER. HAS COMPLAINED OF R)LOWER SIDE/R)FLANK PAIN. MD'S ARE AWARE OF PT'S PAIN. 1 TAB NORCO GIVEN AT 0857, WITH SOME RELIEF. HAS ONLY HAD SIPS OF WATER, MIST TWIST AND A FEW BITES OF APPLESAUCE THIS MORNING. TAKES MEDICATIONS WHOLE WITH WATER. IS SEEING THE PT NOW FOR A NEW CONSULT. NUMEROUS FAMILY MEMBERS HAVE BEEN AT BEDSIDE ALL SHIFT. REPORT WAS GIVEN TO LUCIO LOW RN. Follow up: MONITOR PAIN; NEW ORDERS
[2017-05-23 12:14] LABS: ALBUMIN 2.3 gm/dL (3.5-5.0); ALK PHOS 57 IU/L (33-138); ALT 27 IU/L (12-78); AST 37 IU/L (10-40); TOTAL BILIRUBIN 0.3 mg/dL (0.0-1.5); TOTAL PROTEIN 6.1 g/dL (6.0-8.4)
--- NOTE | 2017-05-23 12:54 | NUR ---
1250 tech present to conduct gallbladder ultrasounds
--- NOTE | 2017-05-23 16:36 | NUR ---
PATIENT IS AAOX3. HE FOLLOWS COMMANDS AND CAN MOVE ALL EXTREMITIES. HE HAS A BARELY TOLERABLE AMOUNT OF PAIN TO HIS ABDOMEN ON THE RIGHT SIDE. IT IS PAINFUL FOR HIM TO TURN OR MOVE A LOT. HE TENDS TO TAKE SHALLOW BREATHS WHEN IN A GREAT DEAL OF PAIN. HE HAS GONE FROM 6L TO 2L ON NASAL CANULA TODAY. HE IS ON A REGUALR DIET BUT HAS ONLY HAD SOME APPLESAUCE, HALF A SODA, AND MOST RECENTLY SOME ICE CREAM. MD RIOS ORDERED A GALLBLADDER ULTRASOUND WHICH SHOWED NO SIGN OF STONES. COX IN PLACE WITH URINE OUTPUT INCREASING SINCE 1600 (DARK YELLOW/CLEAR). PATIENT HAD A BATH EARLIER THIS AFTERNOON. HE IS CURRENTLY ON FLUID, ANTIBIOTICS, AND A HEPARING DRIP. PATIENT HAS BEEN CALM AND COOPERATIVE. HE HAS REQUESTED PAIN MEDICATION (Q4HRS) AND RECEIVED IT AT 1257. FAMILY AT BEDSIDE FOR SUPPORT.
[2017-05-24 06:28] LABS: ALBUMIN 2.1 gm/dL (3.5-5.0); ANION GAP 12.3 (10.0-19.0); CALCIUM 8.3 mg/dL (8.5-10.5); CREATININE 2.7 mg/dL (0.6-1.3); PHOSPHORUS 2.3 mg/dL (2.5-4.9); POTASSIUM 4.3 mMol/L (3.7-5.1)
--- NOTE | 2017-05-24 07:43 | NUR ---
Significant Event: Patient is alert and oriented x 3. VSS on 2L of O2. Up with 1 assist and gaitbelt. Alas intact. 1325 mls out this shift. Right AC IV with 1/2 NS with sodium bicarb running at 100 ml/hr and Heparin gtt at 1000 units/hr. Next PTTHP at 1230. Receiving intermittent antibiotics. Left AC IV, saline locked. [place] given for pain x 2, last at 0411. Around 0400 this am, patient had audible wheezes and expiratory wheezes throughout. MD called, 20 mg IVP Lasix ordered and given. Daughters at the bedside. Patient is pleasant and cooperative with cares. Follow up:
--- NOTE | 2017-05-24 12:00 | NUR ---
Introduced self and role of care management to patient and a daughter. Patient lives alone in [place], his in January. He has 2 daughter, this daughter is from [place] and his other daughter lives in [place]. He plans home when ready for discharge. Will follow.
[2017-05-24 12:40] LABS: BASOPHIL % 0.2 %; EOSINOPHIL # 0.1 K/uL (0.0-0.5); IMMATURE GRANULOCYTE # 0.1 K/uL (0.0-0.3); IMMATURE GRANULOCYTE % 0.7 %; LYMPHOCYTE # 1.2 K/uL (0.8-4.0); LYMPHOCYTE % 9.4 %; MCHC 34.4 gm/dL (32.0-36.5); MONOCYTE % 7.7 %; MPV 10.1 fl (9.4-12.4); NEUTROPHIL # (ANC) 10.7 K/uL (1.4-9.0); NRBC % 0 /100WBC (0-0.00); PLATELET COUNT 152 K/uL (150-450); RBC 3.33 M/uL (3.50-5.50); RDW-CV 12.4 % (11.9-14.6); WBC 13.2 K/uL (4.0-11.0)
[2017-05-24 12:43] LABS: MCV 96.1 fl (83.0-98.0)
--- NOTE | 2017-05-24 17:45 | NUR ---
Significant Event: ALERT & ORIENTED. VSS, AFEBRILE, DOWN TO 1L O2. EXP WHEEZE. COX OUT. SBA, GAITBELT, UNSTEADY, NEEDS ALARMS. EQUAL STRENGTH BILATERALLY. HEPARIN GTT TO R)AC AT 1100 UNITS/HR, NEXT PTTHP AT 1915. IV TO L)AC SL, INTERMITTENT ABX. CREAT AND WBC IMPROVING. GAVE NORCO X1 FOR RIB PAIN WITH COUGHING. DENIES ABDOMINAL PAIN, NO SURGERY NEEDED. Follow-up: AM LABS, RESP STATUS
[2017-05-25 02:15] LABS: INR - (THERAPEUTIC) 1.03 (0.92-1.07); PROTIME 10.8 SECONDS (9.8-11.4)
[2017-05-25 02:19] LABS: ALBUMIN 2.5 gm/dL (3.5-5.0); ANION GAP 13.7 (10.0-19.0); CALCIUM 8.9 mg/dL (8.5-10.5); CREATININE 2.1 mg/dL (0.6-1.3); PHOSPHORUS 1.6 mg/dL (2.5-4.9); POTASSIUM 3.7 mMol/L (3.7-5.1)
--- NOTE | 2017-05-25 04:52 | NUR ---
Heparin gtt running at 1100 units. Next PTTHP at 0900. Titrated O2 up and down all shift. Now on 1L NC. Expiratory wheeze at 2nd assessment, now clear throughout. Productive cough. C/O RUQ/chest pain. 1Tab [place] given at 2340. 40mg IV Lasix given. 2045ml UOP. Alas removed 05/24/17. Some confusion this shift, now A&O. IVs to bilateral ACs. Up 1A to bathroom/urinal. Family at bedside.
--- NOTE | 2017-05-25 11:45 | NUR ---
Significant Event: ALERT & ORIENTED, FORGETUL, DROWSY. STARTED XARELTO TODAY. VSS,ON 1L-RA, AFEBRILE. ABX SWITCHED TO PO. COMPLAINT OF SORE THROAT/CHEST ONLY WHEN COUGHING OR TALKING. DENIES ABDOMINAL PAIN. FREQUENT VOIDS, SMALL AMT WITH URGENCY. DOES NOT USE CALL LIGHT, ALARMS ON AT ALL TIMES. Follow up: POSSBILY DC TO HOME WEDNESDAY?
--- NOTE | 2017-05-26 04:09 | NUR ---
Significant Event: A&O, confused at times. VSS on RA-1L O2/NC. SOB with activity. 2 liquidy BM's. Voids frequently, small amounts with urgency. Ambulated in [place]ohue once with one assist and GB. Complained of sore throat pain occasionally. IVs to bilateral AC's SL. Family at bedside. Follow up: D/C home today
[2017-05-26] MEDS ORDERED: ZITHROMAX250 MG PO (10:26)
[2017-05-26] MEDS ORDERED: FLAGYL500 MG PO (10:29)
[2017-05-26] MEDS ORDERED: XARELTO15 MG PO (10:31)
--- NOTE | 2017-05-26 11:30 | NUR ---
Spoke with patient and 2 daughters. He is discharging home today. Denies discharge needs at this time.
--- NOTE | 2017-05-26 12:54 | NUR ---
PATIENT DISMISSED TO HOME WITH FAMILY PER PRIVATE AUTO. TRANSFERED TO CAR PER W/C BY RN. REVIEWED DISMISSAL INSTRUCTIONS WITH PATIENT, HE VERBALIZED UNDERSTANDING. GAVE PATIENT EDUCATIONS SHEETS ON NEW MEDICATIONS AND PULMONARY EMOLISM.
== END 2017-05-26 11:59 | disposition disaster alternative care site (69) | DRG 682 ==
LOC: GICU 10:15 → GPCU 10:15 → GICU 05-22 18:55 → GPCU 05-23 18:59
PROVIDERS: Family Medicine; Internal Medicine Nephrology; Surgery; ADMIT Internal Medicine Critical Care Medicine
DX: N17.0 Acute kidney failure with tubular necrosis (principal); I26.99 Other pulmonary embolism without acute cor pulmonale; J96.01 Acute respiratory failure with hypoxia; I95.9 Hypotension, unspecified; E87.2 Acidosis; J44.9 Chronic obstructive pulmonary disease, unspecified; E87.5 Hyperkalemia; I10 Essential (primary) hypertension; E78.5 Hyperlipidemia, unspecified; F32.9 Major depressive disorder, single episode, unspecified; M19.90 Unspecified osteoarthritis, unspecified site; Z66 Do not resuscitate; G47.9 Sleep disorder, unspecified; Z87.442 Personal history of urinary calculi
CPT/HCPCS: A9539; A9540; J0456; J0696; J1644; J1940; J2270; J2310; J2405; J7030; J7040; J7050

== ENCOUNTER → 2017-06-09 | Outpatient (CLI) | payer MEDICARE, OTHER ==
[~2017-06-09] MED LIST: AMBIEN5 MG PO; ASPIRIN LO-DOSE81 MG PO; CELEXA20 MG PO; FLAGYL500 MG PO; HYDRODIURIL25 MG PO; LISINOPRIL20 MG PO; MEVACOR20 MG PO; THERAGRAN-M1 TAB PO; TYLENOL EXTRA500 MG PO; VERAPAMIL ER240 MG PO; VITAMIN D1000 UNIT PO; XARELTO15 MG PO; ZITHROMAX250 MG PO
== END ==
LOC: LGSMG 12:43
DX: N17.9 Acute kidney failure, unspecified (principal)